=== PATIENT | male | born 1990 | race Caucasian/White ===

== ENCOUNTER 2021-02-14 12:15 | Inpatient (IN) | payer OTHER ==
[2021-02-14 14:00] VITALS: BMI 31.1
[2021-02-14] MEDS ORDERED: MAGNESIUM HYDROX 2400MG/30ML ORAL SUSPENSION 30 ML CUP PO PRN (14:21)
[2021-02-14] MEDS ORDERED: chlordiazePOXIDE HCL 25 MG CAPSULE PO PRN (14:21)
[2021-02-14] MEDS ORDERED: BISMUTH SUBSALICYLATE 262 MG/15 ML BTL PO PRN (14:21)
[2021-02-14] MEDS ORDERED: ONDANSETRON *ODT* 4 MG TABLET SL PRN (14:21)
[2021-02-14] MEDS ORDERED: IBUPROFEN 400 MG TABLET (FP) PO PRN (14:21)
[2021-02-14] MEDS ORDERED: MENTHOL/PHENOL 1 EACH UD MM PRN (14:21)
[2021-02-14] MEDS ORDERED: MAG HYDROX/AL HYDROX/SIMETH 30 ML UNIT-DOSE CUP PO PRN (14:21)
[2021-02-14] MEDS ORDERED: MAGNESIUM CITRATE 300 ML BOTTLE PO PRN (14:21)
[2021-02-14] MEDS ORDERED: METHOCARBAMOL 500 MG TABLET PO PRN (14:21)
[2021-02-14] MEDS ORDERED: ACETAMINOPHEN 325 MG TABLET (FP) PO PRN ×2 (14:21)
[2021-02-14] MEDS ORDERED: NICOTINE POLACRILEX 2 MG GUM BUC PRN (14:21)
[2021-02-14] MEDS: ALBUTEROL SO4 HFA INHALER IH SCH ×2 (17:42→22:20)
[2021-02-14] MEDS: NICOTINE 14 MG/24 HOURS TOPICAL PATCH TD SCH (17:43)
[2021-02-14] MEDS: hydrOXYzine PAMOATE 25 MG CAPSULE (FP) PO SCH ×2 (17:43→22:20)
[2021-02-14] MEDS: PRENATAL VITAMINS W/ FOLIC ACID TABLET (FP) PO SCH (17:45)
[2021-02-14] MEDS: chlordiazePOXIDE HCL 25 MG CAPSULE PO SCH ×2 (17:45→22:20)
[2021-02-14 18:44] LABS: CALCIUM 9.6 mg/dL (8.5-10.1)
[2021-02-14 18:45] LABS: ALBUMIN 4.1 g/dl (3.4-5.0); BLOOD UREA NITROGEN 9.6 mg/dL (7-18)
[2021-02-14 18:48] LABS: CREATININE 0.9 mg/dL (0.55-1.3)
[2021-02-14 18:49] LABS: BILIRUBIN,TOTAL 0.3 mg/dL (0.2-1)
[2021-02-14 18:50] LABS: TOT PROT 7.6 g/dl (6.4-8.2)
[2021-02-14 18:54] LABS: HEMATOCRIT 42.2 % (35.4-49); HEMOGLOBIN 14.1 GM/dL (11.7-16.9); MCH 32.7 pg (25.7-33.7); MCHC 33.4 g/dl (32.0-35.9); MEAN CELL VOLUME 98.1 fl (80-96); MEAN PLT VOLUME 8.3 fl (7.5-11.1); PLATELET COUNT 213 K/MM3 (134-434); RDW 14.5 % (11.9-15.9); WHITE BLOOD COUNT 5.7 K/mm3 (4.0-10.0)
[2021-02-14 19:43] LABS: HIV INTERPRETATION NEGATIVE (NEGATIVE)
[2021-02-14] MEDS: MIRTAZAPINE 15 MG TABLET (FP) PO SCH (22:20)
[2021-02-14] MEDS: THIAMINE HCL 100 MG TABLET (FP) PO SCH (22:20)
[2021-02-14] MEDS: MELATONIN 5 MG TABLETS PO SCH (22:20)
[2021-02-15] MEDS: hydrOXYzine PAMOATE 25 MG CAPSULE (FP) PO SCH ×5 (05:44→22:27)
[2021-02-15] MEDS: chlordiazePOXIDE HCL 25 MG CAPSULE PO SCH ×4 (05:45→22:27)
[2021-02-15] MEDS: PRENATAL VITAMINS W/ FOLIC ACID TABLET (FP) PO SCH (10:41)
[2021-02-15] MEDS: NICOTINE 14 MG/24 HOURS TOPICAL PATCH TD SCH (10:41)
[2021-02-15] MEDS: ALBUTEROL SO4 HFA INHALER IH SCH ×4 (10:42→22:30)
[2021-02-15] MEDS: SERTRALINE HCL 50 MG TABLET (FP) PO SCH (10:42)
[2021-02-15] MEDS: THIAMINE HCL 100 MG TABLET (FP) PO SCH (22:27)
[2021-02-15] MEDS: MELATONIN 5 MG TABLETS PO SCH (22:27)
[2021-02-15] MEDS: MIRTAZAPINE 15 MG TABLET (FP) PO SCH (22:27)
[2021-02-16] MEDS: chlordiazePOXIDE HCL 25 MG CAPSULE PO SCH ×4 (05:22→22:05)
[2021-02-16] MEDS: hydrOXYzine PAMOATE 25 MG CAPSULE (FP) PO SCH ×5 (05:22→22:05)
[2021-02-16] MEDS: NICOTINE 14 MG/24 HOURS TOPICAL PATCH TD SCH (10:08)
[2021-02-16] MEDS: SERTRALINE HCL 50 MG TABLET (FP) PO SCH (10:09)
[2021-02-16] MEDS: ALBUTEROL SO4 HFA INHALER IH SCH ×4 (10:09→22:07)
[2021-02-16] MEDS: PRENATAL VITAMINS W/ FOLIC ACID TABLET (FP) PO SCH (10:09)
[2021-02-16] MEDS: THIAMINE HCL 100 MG TABLET (FP) PO SCH (22:05)
[2021-02-16] MEDS: MIRTAZAPINE 15 MG TABLET (FP) PO SCH (22:05)
[2021-02-16] MEDS: MELATONIN 5 MG TABLETS PO SCH (22:05)
[2021-02-17] MEDS ORDERED: chlordiazePOXIDE HCL 10 MG CAPSULE PO PRN
[2021-02-17] MEDS: hydrOXYzine PAMOATE 25 MG CAPSULE (FP) PO SCH ×5 (05:47→22:10)
[2021-02-17] MEDS: chlordiazePOXIDE HCL 10 MG CAPSULE PO SCH ×4 (05:47→22:10)
[2021-02-17 10:12] LABS: SARS-CoV-2 NAA Not Detected (Not Detected)
[2021-02-17] MEDS: SERTRALINE HCL 50 MG TABLET (FP) PO SCH (10:27)
[2021-02-17] MEDS: PRENATAL VITAMINS W/ FOLIC ACID TABLET (FP) PO SCH (10:27)
[2021-02-17] MEDS: NICOTINE 14 MG/24 HOURS TOPICAL PATCH TD SCH (10:27)
[2021-02-17] MEDS: ALBUTEROL SO4 HFA INHALER IH SCH ×4 (10:27→22:14)
[2021-02-17 13:57] LABS: BLOOD UREA NITROGEN 11.8 mg/dL (7-18); CALCIUM 8.8 mg/dL (8.5-10.1)
[2021-02-17 14:02] LABS: CREATININE 0.7 mg/dL (0.55-1.3)
[2021-02-17 14:03] LABS: TOT PROT 6.1 g/dl (6.4-8.2)
[2021-02-17 14:05] LABS: ALBUMIN 3.3 g/dl (3.4-5.0); BILIRUBIN,TOTAL 0.4 mg/dL (0.2-1)
[2021-02-17] MEDS: MIRTAZAPINE 15 MG TABLET (FP) PO SCH (22:10)
[2021-02-17] MEDS: MELATONIN 5 MG TABLETS PO SCH (22:10)
[2021-02-17] MEDS: THIAMINE HCL 100 MG TABLET (FP) PO SCH (22:10)
[2021-02-18] MEDS: hydrOXYzine PAMOATE 25 MG CAPSULE (FP) PO SCH ×5 (06:26→22:37)
[2021-02-18] MEDS: chlordiazePOXIDE HCL 10 MG CAPSULE PO SCH ×2 (06:27→19:01)
[2021-02-18] MEDS: SERTRALINE HCL 50 MG TABLET (FP) PO SCH (10:20)
[2021-02-18] MEDS: PRENATAL VITAMINS W/ FOLIC ACID TABLET (FP) PO SCH (10:20)
[2021-02-18] MEDS: NICOTINE 14 MG/24 HOURS TOPICAL PATCH TD SCH (10:20)
[2021-02-18] MEDS: ALBUTEROL SO4 HFA INHALER IH SCH ×4 (10:21→22:47)
[2021-02-18] MEDS: INSULIN SLIDING SCALE (NOVOLOG) 1 VIAL SQ SCH (19:03)
[2021-02-18] MEDS: THIAMINE HCL 100 MG TABLET (FP) PO SCH (22:37)
[2021-02-18] MEDS: MIRTAZAPINE 15 MG TABLET (FP) PO SCH (22:38)
[2021-02-18] MEDS: MELATONIN 5 MG TABLETS PO SCH (22:38)
[2021-02-19] MEDS ORDERED: chlordiazePOXIDE HCL 10 MG CAPSULE PO ONE (05:00)
[2021-02-19] MEDS: hydrOXYzine PAMOATE 25 MG CAPSULE (FP) PO SCH (05:38)
[2021-02-19] MEDS: INSULIN SLIDING SCALE (NOVOLOG) 1 VIAL SQ SCH (07:16)
[2021-02-19 09:35] VITALS: BP 131/84; PULSE 81; TEMP 97.3
== END 2021-02-19 09:15 | disposition home or self-care (01) | DRG 775 ==
LOC: YASAS 12:15 → Y3N 14:44
PROVIDERS: ADMIT Allergy & Immunology; ATTEND Allergy & Immunology
PROC: HZ2ZZZZ Detoxification Services for Substance Abuse Treatment (ICD-10-PCS; principal; 2021-02-14)
DX: F10.230 Alcohol dependence with withdrawal, uncomplicated (principal); F17.210 Nicotine dependence, cigarettes, uncomplicated; F19.24 Other psychoactive substance dependence with psychoactive substance-induced mood disorder; F32.9 Major depressive disorder, single episode, unspecified; F43.10 Post-traumatic stress disorder, unspecified; F90.9 Attention-deficit hyperactivity disorder, unspecified type; J45.909 Unspecified asthma, uncomplicated; G47.00 Insomnia, unspecified; R74.01 Elevation of levels of liver transaminase levels; R73.9 Hyperglycemia, unspecified; E66.9 Obesity, unspecified; Z68.31 Body mass index [BMI] 31.0-31.9, adult; Z91.5 Personal history of self-harm; Z88.5 Allergy status to narcotic agent; Z88.8 Allergy status to other drugs, medicaments and biological substances
CPT/HCPCS: 36415; 80053; 82962; 85027; 86780; 87389; C9803; U0003; U0005